=== PATIENT | female | born 1960 | race Two or more races ===

== ENCOUNTER 2025-08-03 16:46 | Emergency (ER) | payer OTHER ==
[~2025-08-03] VITALS: Ht 160 cm; Wt 108.9 kg
[2025-08-03] MEDS ORDERED: ZANAFLEX2 M1 (17:17)
[2025-08-03] MEDS ORDERED: NEURONTIN800 MG (17:17)
[2025-08-03] MEDS ORDERED: PROTONIX20 MG (17:18)
[2025-08-03] MEDS ORDERED: ELIQUIS2.5 MG (17:18)
[2025-08-03] MEDS ORDERED: NASAL MIST126 ML (17:18)
[2025-08-03] MEDS ORDERED: ISORDIL TITRADOS5 MG (17:18)
[2025-08-03] MEDS ORDERED: CARDURA1 MG (17:18)
[2025-08-03] MEDS ORDERED: NIFEDIPINE20 MG (17:19)
[2025-08-03] MEDS ORDERED: DULOXETINE HCL40 MG (17:19)
[2025-08-03] MEDS ORDERED: KETOROLAC TROMETHAMINE 60 MG VIAL IM ONE ×2 (18:15→18:41)
[2025-08-03] MEDS ORDERED: KETO10TA2 PO (19:32)
== END 2025-08-03 19:39 | disposition home or self-care (01) ==
LOC: ER 16:46
DX: M25.511 Pain in right shoulder (principal); I10 Essential (primary) hypertension
CPT/HCPCS: 71046; 73030; 96372; 99283; J1885